=== PATIENT | female | born 1985 | race Asian ===

== ENCOUNTER 2021-05-13 19:42 | Emergency (ER) | payer BC ==
[~2021-05-13] VITALS: Ht 154.9 cm; Wt 56.2 kg
[2021-05-13 20:02] VITALS: BP_SYST 123
--- NOTE | 2021-05-13 20:39 | NUR ---
Patient to ER bed 7 to gown for evaluation. Side rails up.
--- NOTE | 2021-05-13 20:42 | NUR ---
Patient BIB by family from home. C/O fall , right shoulder pain x today. Patient reported, fell, no LOC, right shoulder pain, 7/10, tingling right hand/forearm and left forearm.
--- NOTE | 2021-05-13 21:40 | NUR ---
ER Dr. Werner at bedside examining patient.
[2021-05-13] MEDS: IBUPROFEN 800 MG TABLET PO ONE (21:57)
--- NOTE | 2021-05-13 22:05 | NUR ---
Patient walked to radiology department with pest technician.
--- NOTE | 2021-05-13 22:42 | NUR ---
ER Dr. Hamm at bedside to explain treatment.
[2021-05-13] MEDS ORDERED: NAPR-690 PO (22:47)
[2021-05-13 22:52] VITALS: BP_SYST 123
--- NOTE | 2021-05-13 22:52 | NUR ---
Patient given written and verbal discharge instructions and verbalizes understanding. ER MD discussed with patient the results and treatment provided. Patient in stable condition. ID arm band removed. Rx of Naproxen given. Patient educated on pain management and to follow up with PMD. Pain Scale 1/10. Opportunity for questions provided and answered. Medication side effect fact sheet provided.
== END 2021-05-13 22:52 | disposition home or self-care (01) ==
LOC: SED 19:42
DX: M25.511 Pain in right shoulder (principal); W18.39XA Other fall on same level, initial encounter; Y93.89 Activity, other specified; Y92.89 Other specified places as the place of occurrence of the external cause; Y99.8 Other external cause status
CPT/HCPCS: 73030; 81025; 99283